=== PATIENT | male | born 1980 | race African-American/Black ===

== ENCOUNTER 2022-12-08 07:13 | Emergency (ER) | payer OTHER ==
[~2022-12-08] VITALS: Ht 175.3 cm; Wt 77.0 kg
[2022-12-08 07:39] VITALS: BP 136/96; PULSE 60; RESP 16; TEMP 98.6; O2SAT 100
[2022-12-08] MEDS ORDERED: ACET-2708 MT (08:09)
== END 2022-12-08 08:41 | disposition home or self-care (01) ==
LOC: ER 07:13
DX: S90.811A Abrasion, right foot, initial encounter (principal); W22.8XXA Striking against or struck by other objects, initial encounter; Y93.89 Activity, other specified; Y92.89 Other specified places as the place of occurrence of the external cause; Y99.8 Other external cause status
CPT/HCPCS: 99282

== ENCOUNTER 2022-12-27 23:49 | Emergency (ER) | payer OTHER ==
[~2022-12-27] VITALS: Ht 175.3 cm; Wt 83.6 kg
[~2022-12-27 23:49] MED LIST: ACET-2708 MT
[2022-12-28 00:06] VITALS: BP 148/83; O2SAT 99
[2022-12-28] MEDS ORDERED: IBUP-2028 MT (03:28)
[2022-12-28] MEDS ORDERED: LIDO1ADH23 TP (03:28)
[2022-12-28 03:40] VITALS: PULSE 66; RESP 16; TEMP 98.1
== END 2022-12-28 03:40 | disposition home or self-care (01) ==
LOC: ER 23:49
DX: S89.91XA Unspecified injury of right lower leg, initial encounter (principal); X58.XXXA Exposure to other specified factors, initial encounter; Y93.89 Activity, other specified; Y92.89 Other specified places as the place of occurrence of the external cause; Y99.8 Other external cause status
CPT/HCPCS: 73562; 99283

== ENCOUNTER 2023-01-24 01:28 | Emergency (ER) | payer MEDICAID, OTHER ==
[~2023-01-24] VITALS: Ht 175.3 cm; Wt 80.0 kg
[~2023-01-24 01:28] MED LIST changes: +IBUP-2028 MT; +LIDO1ADH23 TP
[2023-01-24 02:02] VITALS: BP 147/93; PULSE 74; RESP 16; TEMP 98.1; O2SAT 99
== END 2023-01-24 05:04 | disposition home or self-care (01) ==
LOC: ER 01:28
DX: M17.11 Unilateral primary osteoarthritis, right knee (principal)
CPT/HCPCS: 73562; 99283; Z7610